=== PATIENT | female | born 2000 | race Caucasian/White ===

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

== ENCOUNTER 2022-05-07 00:22 | Emergency (ER) | payer OTHER ==
--- NOTE | 2022-05-07 00:40 | NUR ---
CALLED TO TRIAGE, NO ANSWER
--- NOTE | 2022-05-07 00:50 | NUR ---
CALLED TO TRIAGE, NO ANSWER
--- NOTE | 2022-05-07 01:10 | NUR ---
CALLED TO TRIAGE, NO ANSWER. PT LWBS
== END 2022-05-07 01:10 | disposition left against medical advice (07) ==
LOC: MED 00:22
DX: Z53.21 Procedure and treatment not carried out due to patient leaving prior to being seen by health care provider (principal)

== ENCOUNTER 2022-11-14 05:15 | Emergency (ER) | payer OTHER ==
[~2022-11-14] VITALS: Ht 162.6 cm; Wt 112.0 kg
[2022-11-14 05:22] VITALS: BP 117/80
--- NOTE | 2022-11-14 05:29 | NUR ---
PT AMBULATED TO BED #6
--- NOTE | 2022-11-14 05:47 | NUR ---
22 Y/O F presents with a intermittent sore throat [id number] with congestion, headaches, wheezing, and cough attacks pt stated. pt stated when cough attacks occur she feels like she is going to pass out. pt has NV but denies any diarrhea. pt stated she has intermittent chest pain 8/10 with SOB. pt stated she tried ibuprofen, dayquil and nyquil with no relief. pt is A&Ox4, skin intact. PMH- pt denies NKA
--- NOTE | 2022-11-14 06:20 | NUR ---
xray at bedside
--- NOTE | 2022-11-14 06:31 | NUR ---
swabs collected and sent to lab
[2022-11-14] MEDS ORDERED: BENZ200C4 PO (06:43)
[2022-11-14] MEDS ORDERED: PSEU120T31 PO (06:43)
[2022-11-14] MEDS ORDERED: PRED20TA5 PO (06:43)
[2022-11-14] MEDS ORDERED: ALBU0.0912 INH (06:43)
[2022-11-14] MEDS ORDERED: GUAI118L81 PO (06:43)
--- NOTE | 2022-11-14 06:58 | NUR ---
Patient discharged with v/s stable. Written and verbal after care instructions given and explained. Patient alert, oriented and verbalized understanding of instructions. Ambulatory with by parent. All questions addressed prior to discharge. ID band removed. Patient advised to follow up with PMD. Rx of Albuterol Sulfate, Benzonatate Guaifenesin, Prednisone, Pseudoephedrine given. Opportunity to ask questions provided and answered.
== END 2022-11-14 06:58 | disposition home or self-care (01) ==
LOC: MED 05:15
DX: J20.9 Acute bronchitis, unspecified (principal); Z20.822 Contact with and (suspected) exposure to COVID-19; Z79.899 Other long term (current) drug therapy
CPT/HCPCS: 71045; 87081; 87426; 87804; 99284; Q0092

== ENCOUNTER 2023-07-29 01:17 | Emergency (ER) | payer OTHER ==
[~2023-07-29] VITALS: Ht 162.6 cm; Wt 108.9 kg
[~2023-07-29 01:17] MED LIST changes: +ALBU0.0912 INH; +BENZ200C4 PO; +GUAI118L81 PO; +PRED20TA5 PO; +PSEU120T31 PO
[2023-07-29 01:35] VITALS: BP 140/82; PULSE 78; RESP 16; TEMP 100.1; O2SAT 100
[2023-07-29] MEDS ORDERED: ONDANSETRON 4 MG ODT PO ONE (02:35)
[2023-07-29] MEDS ORDERED: KETOROLAC 30 MG/ML VIAL IM ONE (02:35)
[2023-07-29 03:09] LABS: FLU B ANTIGEN negative (NEGATIVE)
[2023-07-29 03:19] LABS: FLU A ANTIGEN POSITIVE (NEGATIVE)
[2023-07-29] MEDS ORDERED: NAPR-54 PO (03:42)
[2023-07-29] MEDS ORDERED: TAM75 PO (03:42)
[2023-07-29] MEDS ORDERED: ACET-10509 PO (03:42)
[2023-07-29 04:03] VITALS: BP 124/73; PULSE 88; RESP 19; TEMP 98.1; O2SAT 98
== END 2023-07-29 04:03 | disposition home or self-care (01) ==
LOC: MED 01:17
DX: J11.1 Influenza due to unidentified influenza virus with other respiratory manifestations (principal); Z20.822 Contact with and (suspected) exposure to COVID-19; Z79.899 Other long term (current) drug therapy; Z79.1 Long term (current) use of non-steroidal anti-inflammatories (NSAID); Z91.09 Other allergy status, other than to drugs and biological substances
CPT/HCPCS: 71045; 81025; 87426; 87804; 96372; 99284; J1885; Q0092; Q0162

== ENCOUNTER 2024-04-21 18:16 | Emergency (ER) | payer SELFPAY ==
[~2024-04-21] VITALS: Ht 162.6 cm; Wt 112.5 kg
[~2024-04-21 18:16] MED LIST changes: +ACET500T99 PO; +NAPR-337 PO; +TAM75 PO
[2024-04-21 19:01] VITALS: BP 152/93; PULSE 118; RESP 20; TEMP 100.1; O2SAT 95
[2024-04-21] MEDS: DEXAMETHASONE 10 MG/ML VIAL IM ONE (21:13)
[2024-04-21 21:33] LABS: FLU A ANTIGEN NEGATIVE (NEGATIVE); FLU B ANTIGEN NEGATIVE (NEGATIVE)
[2024-04-21] MEDS ORDERED: AMOX500C25 PO (21:44)
[2024-04-21] MEDS ORDERED: LIDO15SO10 PO (21:44)
[2024-04-21] MEDS ORDERED: IBUP-2213 PO (21:44)
== END 2024-04-21 21:51 | disposition home or self-care (01) ==
LOC: MED 18:16
DX: J02.0 Streptococcal pharyngitis (principal); F12.90 Cannabis use, unspecified, uncomplicated; E11.9 Type 2 diabetes mellitus without complications; Z20.822 Contact with and (suspected) exposure to COVID-19; Z90.49 Acquired absence of other specified parts of digestive tract; Z79.899 Other long term (current) drug therapy
CPT/HCPCS: 87081; 87426; 87804; 96372; 99283; J1100